=== PATIENT | male | born 1965 | race Two or more races ===

== ENCOUNTER 2020-01-07 19:39 | Inpatient (IN) | payer MEDICAID, OTHER ==
[~2020-01-07] VITALS: Ht 175.3 cm; Wt 106.9 kg
[2020-01-07] MEDS ORDERED: ACETAMINOPHEN 325 MG TAB PO ONE (20:30)
[2020-01-07 21:02] LABS: Basophils # (auto) 0 10 ^3/uL (0-0.2); Basophils % (auto) 0.4 % (0.0-2.0); Eosinophils # (auto) 0 10 ^3/uL (0-0.8); Hematocrit 47.9 % (41.0-53.0); Hemoglobin 16.6 g/dL (13.5-17.5); Lymphocytes # (auto) 1.3 10 ^3/uL (0.4-5.4); Lymphocytes % (auto) 15.5 % (10.0-50.0); Mean Corpuscular Hemoglobin 30.7 pg (28.0-32.0); Mean Corpuscular Hgb Conc. 34.6 g/dL (32.0-36.0); Mean Corpuscular Volume 88.8 fL (80.0-100.0); Monocytes # (auto) 0.8 10 ^3/uL (0-1.3); Monocytes % (auto) 9.6 % (0.0-12.0); Neutrophils # (auto) 6.2 10 ^3/uL (1.6-8.6); Neutrophils % (auto) 74.5 % (37.0-80.0); Nucleated Red Blood Cells % 0.3 %; Platelet Count (auto) 228 10^3/uL (140-450); Red Cell Distribution Width 13.5 % (11.8-14.3); White Blood Cell 8.4 10^3/uL (4.4-10.8)
[2020-01-07 21:18] LABS: INR 1.03 (0.9-1.15); Partial Thromboplastin Time 33.9 sec (23.0-31.2)
[2020-01-07 21:22] LABS: BUN/Creatinine Ratio 13.1; Calcium 8.2 mg/dL (8.5-10.1); Magnesium 2.1 mg/dL (1.6-2.6); Potassium 3.6 mmol/L (3.5-5.1)
[2020-01-07 21:36] LABS: Bilirubin, Total 0.7 mg/dL (0.2-1.0); Total Protein 7.9 g/dL (6.4-8.2)
[2020-01-08] MEDS ORDERED: MORPHINE SULF INJ 2 MG/ML SYRINGE 1ML IV PRN (01:00)
[2020-01-08] MEDS ORDERED: NITROGLYCERIN 0.4 MG SL TAB SL PRN (01:00)
[2020-01-08] MEDS ORDERED: ONDANSETRON HCL 4 MG/2 ML VIAL IV PRN (01:00)
[2020-01-08 01:18] VITALS: BP 104/64
[2020-01-08] MEDS ORDERED: HYDROcodone-ACET 5/325MG TAB PO ONE (01:45)
[2020-01-08] MEDS: ACETAMINOPHEN 325 MG TAB PO PRN ×3 (02:09→22:04)
[2020-01-08 02:13] LABS: Magnesium 2.5 mg/dL (1.6-2.6)
[2020-01-08 02:21] LABS: CRP High Sensitivity 15.9 mg/dL (< 0.3)
[2020-01-08 04:30] VITALS: BP 130/81
--- NOTE | 2020-01-08 04:30 | NUR ---
Telemetry admit from ER ANAHI DOHERTY admitted to Telemetry unit after SBAR received. Patient oriented to MARIO AMAYA, RN primary RN, MST unit, room 238, and unit policies regarding patient care and visiting hours. Patient now on continuous telemetry monitoring, tele box # 8 and telemetry reading on arrival to unit is sinus rhythm in the 90s. Patient placed on bedside oxygen, weighed by bedscale and encouraged to call if they need something. All questions and concerns addressed, patient verbalized understanding. Note: Patient on 3L of oxygen via NC with even and unlabored respirations, no S/S of distress or SOB at this time. Patient able to ambulate independently, bed in lowest locked position, side rails up x2, and call light within reach. Will continue to monitor Q1HR PRN.
[2020-01-08] MEDS: ALBUTEROL SULF HFA 90MCG INH 200DOSE IN SCH ×3 (07:01→20:28)
--- NOTE | 2020-01-08 07:10 | NUR ---
PT. ASSESSED, PT. SLEEPING UPON ARRIVAL, PT. WOKE UP AND WAS APPROPRIATE. SP02 97% ON 2LPM NC. BS ARE CLEAR AND DIMINISHED BILAT. MDI NOT AVAILABLE AT THIS TIME, WILL CONTACT AND OBTAIN FROM PHARMACY. NO RESP. DISTRESS OR SOB NOTED ST THIS TIME, WILL CONTINUE TO MONITOR RESP. STATUS.
--- NOTE | 2020-01-08 07:30 | NUR ---
Opening Shift Note Assumed care of patient, awake and alert. No S/S of distress/SOB or pain. Instructed on POC and to call for assist PRN, will continue to monitor for changes Q1hr and PRN. Fall precautions in place per safety protocol.
[2020-01-08 08:00] VITALS: BP_SYST 132; BP_SYST 90; BP_DIAS 56; BP_DIAS 78
[2020-01-08] MEDS: DexAMETHasone SOD PHOS 10MG/1ML VIAL INJ IV SCH (09:44)
[2020-01-08] MEDS: ZINC SULFATE 220mg CAP or TAB PO SCH (09:45)
[2020-01-08] MEDS: CHOLECALCIFEROL (VITD3) 2,000 UNIT CAP PO SCH (09:45)
[2020-01-08] MEDS: FAMOTIDINE 20 MG TAB PO SCH ×2 (09:45→22:03)
[2020-01-08] MEDS: DOXYCYCLINE 100MG/250ML 250 ML IV SCH ×2 (09:45→22:03)
[2020-01-08] MEDS: ENOXAPARIN SOD 40 MG/0.4 ML SYRINGE SC SCH (09:45)
[2020-01-08] MEDS: ASCORBIC ACID 1,000 MG TAB PO SCH (09:45)
[2020-01-08 10:10] LABS: Urine Bacteria NONE SEEN /hpf (None Seen); Urine Blood Negative /uL (Negative); Urine Specific Gravity 1.025 (1.001-1.035); Urine WBC <1 /hpf (0 - 3)
[2020-01-08 12:00] VITALS: BP 135/85
--- NOTE | 2020-01-08 14:43 | NUR ---
PT. WAS GETTING READY TO TAKE A SHOWER AT THIS TIME. ASSESSED PT. , MDI GIVEN WITH ALBUTEROL INHALER, NO ADVERSE EFFECTS NOTED. BS. ARE CLEAR AND DIMINISHED. PT. WAS CURRENTLY OFF HIS O2 AND SATURATION WAS 91%. PT. WAS ON 02 AT 2LPM PRIOR. NO RESP. DISTRESS OR SOB NOTED AT THIS TIME. Addendum: 01/08/20 at 1601 by Jerri Goldstein RT Amended: Links added.
[2020-01-08 17:00] VITALS: BP 130/85
[2020-01-08 22:00] VITALS: BP 153/86
[2020-01-08] MEDS: TEMAZEPAM 15 MG CAP PO PRN (22:04)
[2020-01-09] MEDS: ACETAMINOPHEN 325 MG TAB PO PRN ×2 (04:53→21:12)
[2020-01-09 05:00] VITALS: BP 141/96
[2020-01-09 05:30] LABS: Basophils # (auto) 0 10 ^3/uL (0-0.2); Basophils % (auto) 0.2 % (0.0-2.0); Eosinophils # (auto) 0 10 ^3/uL (0-0.8); Hematocrit 47.6 % (41.0-53.0); Hemoglobin 16.3 g/dL (13.5-17.5); Lymphocytes # (auto) 0.8 10 ^3/uL (0.4-5.4); Lymphocytes % (auto) 10.8 % (10.0-50.0); Mean Corpuscular Hemoglobin 30.7 pg (28.0-32.0); Mean Corpuscular Hgb Conc. 34.3 g/dL (32.0-36.0); Mean Corpuscular Volume 89.6 fL (80.0-100.0); Monocytes # (auto) 0.8 10 ^3/uL (0-1.3); Monocytes % (auto) 10.6 % (0.0-12.0); Neutrophils # (auto) 6.2 10 ^3/uL (1.6-8.6); Neutrophils % (auto) 78.4 % (37.0-80.0); Nucleated Red Blood Cells % 0.2 %; Platelet Count (auto) 256 10^3/uL (140-450); Red Blood Cells 5.31 10^6/uL (4.5-5.90); Red Cell Distribution Width 13.5 % (11.8-14.3); White Blood Cell 7.9 10^3/uL (4.4-10.8)
[2020-01-09 05:45] LABS: Potassium 4.2 mmol/L (3.5-5.1)
[2020-01-09 05:53] LABS: Albumin 2.7 g/dL (3.4-5.0); BUN/Creatinine Ratio 27.3; Bilirubin, Total 0.6 mg/dL (0.2-1.0); Calcium 8.6 mg/dL (8.5-10.1); Total Protein 7.7 g/dL (6.4-8.2)
[2020-01-09] MEDS: ALBUTEROL SULF HFA 90MCG INH 200DOSE IN SCH ×3 (06:59→22:05)
--- NOTE | 2020-01-09 06:59 | NUR ---
closing note pt resting in semi fowlers with HOB at thirty degrees. pt denies pain or discomfort at this time. pt is on 2Lnc. bed in low locked position, call light within reach.
--- NOTE | 2020-01-09 07:15 | NUR ---
OPENING SHIFT NOTE ASSUMED CARE OF PATIENT FROM HOSPITALITY SERVICES MANAGER HARJIT MITCHELL. PATIENT IS AWAKE, ALERT, AND ORIENTED X4. PATIENT HAS NO S/S OF DISTRESS/SOB OR PAIN. INSTRUCTED PATIENT ON POC, PATIENT VERBALIZED UNDERSTANDING. BED IS IN LOWEST POSITION WITH SIDE RAILS RAISED X2, BED WHEELS LOCKED, AND CALL LIGHT IS WITHIN REACH. WILL CONTINUE TO MONITOR.
[2020-01-09 07:30] VITALS: BP 133/97
[2020-01-09 08:00] VITALS: BP 133/97
[2020-01-09] MEDS: FAMOTIDINE 20 MG TAB PO SCH ×2 (09:59→21:11)
[2020-01-09] MEDS: ZINC SULFATE 220mg CAP or TAB PO SCH (10:00)
[2020-01-09] MEDS: DOXYCYCLINE 100MG/250ML 250 ML IV SCH ×2 (10:00→21:11)
[2020-01-09] MEDS: ASCORBIC ACID 1,000 MG TAB PO SCH (10:00)
[2020-01-09] MEDS: ENOXAPARIN SOD 40 MG/0.4 ML SYRINGE SC SCH (10:00)
[2020-01-09] MEDS: DexAMETHasone SOD PHOS 10MG/1ML VIAL INJ IV SCH (10:00)
[2020-01-09] MEDS: CHOLECALCIFEROL (VITD3) 2,000 UNIT CAP PO SCH (10:00)
[2020-01-09 12:00] VITALS: BP 137/87
--- NOTE | 2020-01-09 15:15 | NUR ---
ENDORSED CARE TO HARJIT VARGAS. PATIENT HAS NO S/S OF DISTRESS/SOB OR PAIN AT THIS TIME.
--- NOTE | 2020-01-09 16:18 | NUR ---
Assessment Patient is a 54-year-old male who is alert and oriented. Unable to speak to patient. Assessment was completed with patient Sury . Prior to admission patient lived home with family and functioned independently. Prior to admission patient could care for his own ADLs. Patient does not have any medical equipment now. Sury states patient does not health insurance but has a social security. Sury was informed that upon discharge bedside nurse will provide patient with instructions to follow with [facility] discharge clinic. Patient will return to his prior living arraignments post discharge and family will transport him home. Sury was informed she has a right to participate in all discharge planning. Sury verbalized understanding. Addendum: 01/09/20 at 1629 by ALBERT RANGEL Amended: Links added.
[2020-01-09 17:00] VITALS: BP 139/85
[2020-01-09] MEDS: TEMAZEPAM 15 MG CAP PO PRN (21:12)
[2020-01-09 22:00] VITALS: BP 146/91
--- NOTE | 2020-01-09 22:08 | NUR ---
COMMUNICATED TO RN MARLENE OF O2 CHANGE, FROM 2 TO 3 LPM VIA NC. ALSO COMMUNICATED PT COMPLAINING OF IV SITE PAIN.
[2020-01-10 05:00] VITALS: BP 140/89
[2020-01-10] MEDS: ACETAMINOPHEN 325 MG TAB PO PRN (05:41)
[2020-01-10 06:28] LABS: Basophils # (auto) 0 10 ^3/uL (0-0.2); Basophils % (auto) 0.1 % (0.0-2.0); Eosinophils # (auto) 0 10 ^3/uL (0-0.8); Hematocrit 45.9 % (41.0-53.0); Hemoglobin 15.7 g/dL (13.5-17.5); Lymphocytes # (auto) 1.1 10 ^3/uL (0.4-5.4); Lymphocytes % (auto) 10.8 % (10.0-50.0); Mean Corpuscular Hemoglobin 30.7 pg (28.0-32.0); Mean Corpuscular Hgb Conc. 34.3 g/dL (32.0-36.0); Mean Corpuscular Volume 89.7 fL (80.0-100.0); Monocytes # (auto) 1.2 10 ^3/uL (0-1.3); Monocytes % (auto) 11.5 % (0.0-12.0); Neutrophils # (auto) 8.1 10 ^3/uL (1.6-8.6); Neutrophils % (auto) 77.6 % (37.0-80.0); Nucleated Red Blood Cells % 0.2 %; Platelet Count (auto) 342 10^3/uL (140-450); Red Blood Cells 5.12 10^6/uL (4.5-5.90); Red Cell Distribution Width 13.7 % (11.8-14.3); White Blood Cell 10.5 10^3/uL (4.4-10.8)
[2020-01-10 06:41] LABS: Calcium 8.5 mg/dL (8.5-10.1); Potassium 4.2 mmol/L (3.5-5.1)
[2020-01-10 06:43] LABS: BUN/Creatinine Ratio 28.6
[2020-01-10] MEDS: ALBUTEROL SULF HFA 90MCG INH 200DOSE IN SCH ×3 (07:37→22:11)
[2020-01-10 09:00] VITALS: BP 131/90
[2020-01-10] MEDS: DexAMETHasone SOD PHOS 10MG/1ML VIAL INJ IV SCH (09:29)
[2020-01-10] MEDS: FAMOTIDINE 20 MG TAB PO SCH ×2 (09:29→22:04)
[2020-01-10] MEDS: ZINC SULFATE 220mg CAP or TAB PO SCH (09:29)
[2020-01-10] MEDS: ASCORBIC ACID 1,000 MG TAB PO SCH (09:29)
[2020-01-10] MEDS: DOXYCYCLINE 100MG/250ML 250 ML IV SCH ×2 (09:29→22:04)
[2020-01-10] MEDS: CHOLECALCIFEROL (VITD3) 2,000 UNIT CAP PO SCH (09:30)
[2020-01-10] MEDS: ENOXAPARIN SOD 40 MG/0.4 ML SYRINGE SC SCH (09:30)
[2020-01-10 16:42] VITALS: BP 123/80
--- NOTE | 2020-01-10 20:10 | NUR ---
Opening Shift Note Assumed care of patient, awake and alert. No S/S of distress/SOB or pain. Instructed on POC and to call for assist PRN, will continue to monitor for changes Q1hr and PRN. bed in low position and call light within reach.
[2020-01-10 22:00] VITALS: BP 122/81
[2020-01-10] MEDS: TEMAZEPAM 15 MG CAP PO PRN (22:04)
--- NOTE | 2020-01-10 22:44 | NUR ---
daughter whom provided password updated on poc
[2020-01-11 00:54] VITALS: BP 123/80
[2020-01-11] MEDS: ACETAMINOPHEN 325 MG TAB PO PRN ×2 (01:34→08:03)
--- NOTE | 2020-01-11 01:34 | NUR ---
HEADACHE 3/10 PATIENT MEDICATED FOR PAIN
--- NOTE | 2020-01-11 02:34 | NUR ---
pain pain 0/10
[2020-01-11 05:00] VITALS: BP 133/85
[2020-01-11] MEDS: ALBUTEROL SULF HFA 90MCG INH 200DOSE IN SCH ×3 (06:58→22:12)
--- NOTE | 2020-01-11 07:17 | NUR ---
report given to dayshift rn patient denies sob distress or pain
--- NOTE | 2020-01-11 07:40 | NUR ---
OPENING SHIFT NOTE: PATIENT RESTING IN BED, A/OX4, RESPIRATIONS EVEN AND UNLABORED ON 2LNC. PATIENT ABLE TO RETURN DEMONSTRATION ON INCENTIVE SPIROMETER, REACHED 2500ML. UPDATED ON PLAN OF CARE PATIENT VERBALIZED UNDERSTANDING. CALL LIGHT WITHIN REACH, TELE CONNECTED TO MONITOR. FALL PRECAUTIONS IN PLACE, WILL CONTINUE TO MONITOR.
[2020-01-11 09:00] VITALS: BP 133/88
[2020-01-11] MEDS: DexAMETHasone SOD PHOS 10MG/1ML VIAL INJ IV SCH (09:45)
[2020-01-11] MEDS: FAMOTIDINE 20 MG TAB PO SCH ×2 (09:45→21:29)
[2020-01-11] MEDS: ZINC SULFATE 220mg CAP or TAB PO SCH (09:45)
[2020-01-11] MEDS: CHOLECALCIFEROL (VITD3) 2,000 UNIT CAP PO SCH (09:45)
[2020-01-11] MEDS: ASCORBIC ACID 1,000 MG TAB PO SCH (09:45)
[2020-01-11] MEDS: ENOXAPARIN SOD 40 MG/0.4 ML SYRINGE SC SCH (09:45)
[2020-01-11] MEDS: DOXYCYCLINE 100MG/250ML 250 ML IV SCH ×2 (09:45→21:29)
--- NOTE | 2020-01-11 12:00 | NUR ---
Nutrition Assessment Est energy needs [id number] kcal (14-18 kcal/kg BW 109.4kg) Est protein needs 73-95g (1-1.3g/kg IBW 72.7kg) Will reassess prn. Addendum: 01/11/20 at [address] Amended: Links added.
[2020-01-11 13:00] VITALS: BP 132/86
[2020-01-11 16:54] VITALS: BP 132/78
--- NOTE | 2020-01-11 18:45 | NUR ---
CARE ENDORSED TO NOC RN.
--- NOTE | 2020-01-11 19:16 | NUR ---
received report from jimmy hylton
--- NOTE | 2020-01-11 19:18 | NUR ---
Opening Shift Note Assumed care of patient, awake and alert. No S/S of distress/SOB or pain. patient on 1 l n/c saturation 95%.Instructed on POC and to call for assist PRN, will continue to monitor for changes Q1hr and PRN. bed in low position and call light within reach.
[2020-01-11] MEDS: TEMAZEPAM 15 MG CAP PO PRN (21:30)
[2020-01-11 22:00] VITALS: BP 139/83
--- NOTE | 2020-01-11 22:00 | NUR ---
IV insertion/IV removal IV DC'd with clean sterile technique, catheter fully intact. Pressure dressing applied to site. Patient tolerated well. IV access obtained, via clean sterile technique by inserting 22 gauge catheter at left forearm after 1 attempt. IV secured properly. No trauma to site. Patient tolerated well
[2020-01-12 05:00] VITALS: BP 129/86
--- NOTE | 2020-01-12 06:39 | NUR ---
patient rounds patient resting in bed denies sob distress or pain. iv is intact and patent.call light within reach and bed in low position
[2020-01-12 06:47] LABS: Basophils # (auto) 0.1 10 ^3/uL (0-0.2); Basophils % (auto) 1.1 % (0.0-2.0); Eosinophils # (auto) 0 10 ^3/uL (0-0.8); Mean Corpuscular Volume 90.5 fL (80.0-100.0); Monocytes # (auto) 1.3 10 ^3/uL (0-1.3)
[2020-01-12 06:49] LABS: Eosinophils % (auto) 0.4 % (0.0-7.0); Hematocrit 48.1 % (41.0-53.0); Hemoglobin 16.3 g/dL (13.5-17.5); Lymphocytes # (auto) 2.4 10 ^3/uL (0.4-5.4); Lymphocytes % (auto) 25.9 % (10.0-50.0); Mean Corpuscular Hemoglobin 30.8 pg (28.0-32.0); Monocytes % (auto) 13.4 % (0.0-12.0); Neutrophils # (auto) 5.5 10 ^3/uL (1.6-8.6); Neutrophils % (auto) 59.2 % (37.0-80.0); Nucleated Red Blood Cells % 0.1 %; Platelet Count (auto) 466 10^3/uL (140-450); Red Blood Cells 5.31 10^6/uL (4.5-5.90); Red Cell Distribution Width 13.3 % (11.8-14.3); White Blood Cell 9.4 10^3/uL (4.4-10.8)
[2020-01-12 07:14] LABS: Potassium 4.2 mmol/L (3.5-5.1)
--- NOTE | 2020-01-12 07:15 | NUR ---
report given to dayshift rn patient denies sob distress or pain
[2020-01-12 07:29] LABS: BUN/Creatinine Ratio 28.8; Bilirubin, Total 0.5 mg/dL (0.2-1.0); CRP High Sensitivity 1.65 mg/dL (< 0.3); Calcium 8.7 mg/dL (8.5-10.1); Total Protein 7.7 g/dL (6.4-8.2)
--- NOTE | 2020-01-12 07:30 | NUR ---
Opening Shift Note RECEIVED REPORT FROM NOC RN. Assumed care of patient, awake and alert. No S/S of distress/SOB or pain. BED IN LOWEST, LOCKED POSITION WITH SIDERAILS UP x2 AND CALL LIGHT WITHIN REACH. Instructed on POC and to call for assist PRN, will continue to monitor for changes Q1hr and PRN.
[2020-01-12] MEDS: ALBUTEROL SULF HFA 90MCG INH 200DOSE IN SCH ×3 (07:45→21:43)
[2020-01-12 09:00] VITALS: BP 139/93
--- NOTE | 2020-01-12 10:20 | NUR ---
DR. CHIN AT BEDSIDE. NEW ORDERS RECEIVED AND CARRIED OUT.
[2020-01-12] MEDS: DexAMETHasone SOD PHOS 10MG/1ML VIAL INJ IV SCH (10:29)
[2020-01-12] MEDS: ASCORBIC ACID 1,000 MG TAB PO SCH (10:30)
[2020-01-12] MEDS: DOXYCYCLINE 100MG/250ML 250 ML IV SCH ×2 (10:30→21:51)
[2020-01-12] MEDS: FAMOTIDINE 20 MG TAB PO SCH ×2 (10:30→21:50)
[2020-01-12] MEDS: ZINC SULFATE 220mg CAP or TAB PO SCH (10:30)
[2020-01-12] MEDS ORDERED: FUROSEMIDE 20 MG/2 ML VIAL IV ONE (10:30)
[2020-01-12] MEDS: CHOLECALCIFEROL (VITD3) 2,000 UNIT CAP PO SCH (10:30)
[2020-01-12] MEDS: ENOXAPARIN SOD 40 MG/0.4 ML SYRINGE SC SCH (10:31)
[2020-01-12] MEDS: guaiFENesin-DM 100/10mg/5ml SYR PO PRN ×2 (10:45→21:51)
[2020-01-12 13:00] VITALS: BP 120/81
[2020-01-12] MEDS: SODIUM CHLORIDE 0.9% 1,000 ML IV SCH (13:42)
[2020-01-12] MEDS: FUROSEMIDE 20 MG/2 ML VIAL IV SCH (18:07)
--- NOTE | 2020-01-12 19:30 | NUR ---
Opening Shift Note Assumed care of patient awake and alert x4. Upon entering room patient was noted sitting on the edge of the bed and reported shortness of breath. Patient reported he had just returned from using the bathroom. SPO2 on room air was noted to be 92%. Patient was placed on 1L/min NC, SPO2 increased to 96%. No sign/symptoms of distress was noted at this time. Patient denied pain at this time. Patient instructed on plan of care and encouraged to call for assistance as needed, patient verbalized understanding. Bed is locked in lowest position, side rails x 2 are up, and call light is within reach. Will continue care.
[2020-01-12] MEDS: TEMAZEPAM 15 MG CAP PO PRN (22:00)
[2020-01-12 22:16] VITALS: BP 124/82
[2020-01-13 05:00] VITALS: BP 130/86
[2020-01-13] MEDS: FUROSEMIDE 20 MG/2 ML VIAL IV SCH (05:57)
[2020-01-13] MEDS: ACETAMINOPHEN 325 MG TAB PO PRN (06:04)
[2020-01-13] MEDS: SODIUM CHLORIDE 0.9% 1,000 ML IV SCH (06:04)
--- NOTE | 2020-01-13 06:19 | NUR ---
IV Insertion/IV Removal IV access obtained, via clean sterile technique by inserting 22 gauge catheter at right hand after 1 attempt. IV secured properly. No trauma to site. Patient tolerated well IV to left forearm DC'd due to patient complaining of IV site burning. IV DC'd with clean sterile technique, catheter fully intact. Pressure dressing applied to site. Patient tolerated well.
[2020-01-13] MEDS: ALBUTEROL SULF HFA 90MCG INH 200DOSE IN SCH ×2 (07:32→14:31)
--- NOTE | 2020-01-13 08:13 | NUR ---
OPENING SHIFT NOTE: PATIENT RESTING IN BED. A/OX4 UPDATED ON PLAN OF CARE. PATIENT NOTED TO BE ON ROOM AIR, O2 SAT 93% RR 22. PATIENT NOTED TO GET SOB ON EXERTION. PATIENT REPORTS FEELING BETTER AND HE IS READY TO GO HOME. CALL LIGHT WITHIN REACH, WILL CONTINUE TO MONITOR.
[2020-01-13 09:00] VITALS: BP 120/80
[2020-01-13] MEDS: DexAMETHasone SOD PHOS 10MG/1ML VIAL INJ IV SCH (10:03)
[2020-01-13] MEDS: ENOXAPARIN SOD 40 MG/0.4 ML SYRINGE SC SCH (10:06)
[2020-01-13] MEDS: FAMOTIDINE 20 MG TAB PO SCH (10:06)
[2020-01-13] MEDS: ZINC SULFATE 220mg CAP or TAB PO SCH (10:06)
[2020-01-13] MEDS: ASCORBIC ACID 1,000 MG TAB PO SCH (10:06)
[2020-01-13] MEDS: CHOLECALCIFEROL (VITD3) 2,000 UNIT CAP PO SCH (10:06)
[2020-01-13] MEDS ORDERED: ASCO10003 PO (11:24)
[2020-01-13] MEDS ORDERED: DEX4T PO (11:24)
[2020-01-13 13:00] VITALS: BP 125/79
[2020-01-13 13:23] VITALS: BP 130/86
--- NOTE | 2020-01-13 15:21 | NUR ---
DISCHARGE: PATIENT DISCHARGED HOME. ALL EDUCATION MATERIALS GIVEN, PATIENT ENCOURAGED TO QUARANTINE FOR 3 WEEKS. PATIENT VERBALIZED UNDERSTANDING. PATIENT LEFT ON ROOM AIR, EVEN AND UNLABORED RESPIRATIONS NOTED. PATIENT IV REMOVED, MANUAL PRESSURE APPLIED. TELE RETURNED TO CARDIO UNIT. PATIENT ABLE TO AMBULATE TO PRIVATE AUTO WITH ALL BELONGINGS.
== END 2020-01-13 15:00 | disposition home or self-care (01) | DRG 137 ==
LOC: ER 19:39 → TELE 19:40 → TELE-EAST 01-08 04:30
PROVIDERS: ADMIT Nurse Practitioner; ATTEND Internal Medicine Pulmonary Disease
DX: U07.1 COVID-19 (principal); J96.01 Acute respiratory failure with hypoxia; J12.89 Other viral pneumonia; E87.1 Hypo-osmolality and hyponatremia; E44.0 Moderate protein-calorie malnutrition; Z68.34 Body mass index [BMI] 34.0-34.9, adult; E78.5 Hyperlipidemia, unspecified; E66.01 Morbid (severe) obesity due to excess calories; K75.9 Inflammatory liver disease, unspecified
CPT/HCPCS: 36415; 36600; 71045; 80048; 80053; 81001; 82728; 82805; 83605; 83615; 83735; 83880; 84443; 84484; 85025; 85379; 85610; 85730; 86141; 87040; 93005; 94640; G0378; J1100; J3490